=== PATIENT | female | born 1945 | race Caucasian/White ===

== ENCOUNTER → 2019-05-03 | Outpatient (CLI) | payer OTHER ==
[~2019-05-03] VITALS: Ht 167.6 cm; Wt 56.7 kg
[~2019-05-03] MED LIST: ASA81BEC PO; L-LYSINE500 M1 PO; MULTIVITAMINS PO; PROBIOTIC1 EAC7 PO; PROZAC20 MG PO; SIMVASTATIN40 MG PO; SYNTHROID100 MC1 PO; WELLBUTRIN XL300 MG PO
--- NOTE | 2019-05-04 10:34 | P ---
[facility] [address] [place] [address] PROCEDURE REPORT Name: MORALES LR Room #: REG [facility]#: [id number] Admission: 05/03/19 Attend Phys: Greg Suh MD Discharge: Date of : 47 Report #: [id number] THIS REPORT FOR: //name// CC: Maria Suh DATE OF SERVICE: 05/03/2019 BRIEF HISTORY: The patient is a 74-year-old woman who has a history of multiple colon adenomas. Also, family history of colon cancer in her brother when he was in his early 50s. PREOPERATIVE DIAGNOSES: High risk screening colonoscopy due to personal history of colon polyps, family history of colon cancer. POSTOPERATIVE DIAGNOSES: 1. Multiple colon polyps. 2. Large rectal polyp. 3. Diffusely dilated colon consistent with chronic constipation. MEDICATIONS: Deep sedation with propofol per Anesthesia. SPECIMENS: 1. Diminutive polyp at 50 cm. 2. Diminutive polyp hepatic flexure. 3. Diminutive polyp, cecum x 2. 4. Polyps mid ascending colon x 2. 5. Polyps proximal ascending colon x 2. 6. Distal transverse colon polyp. 7. Large rectal polyp. ESTIMATED BLOOD LOSS: 5 mL. PROCEDURE: Colonoscopy to cecum and terminal ileum with snare polypectomy, biopsy, injection of saline and Trinh ink. FINDINGS: Prior to propofol sedation, procedure of colonoscopy discussed with the patient as well as potential risks and its complications. She indicates she understands and desires to proceed. DESCRIPTION OF PROCEDURE: With the patient in left lateral decubitus position, digital examination was completed, which revealed no abnormalities. Subsequently, the Olympus video colonoscope was introduced in the rectum, advanced under direct vision to the cecum. This was done with minimal difficulty. The cecum was identified by the ileocecal valve and the appendiceal [facility] [address] [place] [address] PROCEDURE REPORT Name: ELIECERMORALES HADDAD Room #: REG [facility]#: [id number] Admission: 05/03/19 Attend Phys: Greg Suh MD Discharge: Date of : 47 Report #: [id number] orifice. I was able to visualize the distal segment of the terminal ileum, which was inspected and noted to be unremarkable. At that point, the scope was slowly withdrawn and careful circumferential views were obtained including retroflexion of the ascending colon. Upon slow withdrawal of the scope, the prep was generally good, although there were a couple areas with some residual vessel material. As we withdrew the scope, 2 diminutive polyps were seen in the cecum and removed with the biopsy forceps. The scope was further withdrawn and then we initially saw 2 polyps in the mid ascending colon. One was a flat polyp draped over the edge of fold. It was covered with mucus. It was 10-12 mm in greatest dimension, removed with multiple passes of cold polypectomy snare and biopsy forceps. The second polyp was a diminutive polyp in the same area and was removed with biopsy forceps. The larger polyp had the appearance of a serrated adenoma. We then found 2 polyps just proximal to that area. Both had an adenomatous appearance. They were in the range of about 4-6 mm and removed with cold polypectomy snare. Scope was further withdrawn and a diminutive polyp was seen and removed with biopsy forceps from the distal transverse colon. The scope was further drawn and no additional abnormalities were noted until 50 cm was reached in the descending colon, and a diminutive polyp was seen and removed with biopsy forceps. Scope was withdrawn in the rectum and no abnormalities were seen. However, upon retroflexion, in the distal rectum was a flat carpet-like polyp with some raised areas. It was about 2 x 2 cm. No other lesions were seen. This polyp was then elevated with saline and we used a 13 mm snare and removed multiple fragments of the polyp. However, there were sessile areas that still remained. We then switched to a 10 mm snare, which was stiffer and we were able to engage flat and resect much better and we continued to resect in fragments. Once we resected all the polyps that we could engage in the snare, couple of fragments were removed with cold biopsy forceps. We then used argon plasma coagulation and treated the entire edge of the polypectomy site as well as questionable areas of residual polyp in the base of the polypectomy site. There was good hemostasis. It was felt that all visible areas of the polyp were either removed or treated with argon plasma coagulation. We then used a needle and injected Trinh ink in place tattoo on each side of the polypectomy site. No additional lesions were seen. Scope was withdrawn. The patient tolerated the procedure well. CONDITION OF THE PATIENT UPON DISCHARGE: Following procedure, the patient drowsy, aroused, conversant and will be discharged home when fully ambulatory. INSTRUCTIONS TO THE PATIENT AND FAMILY AT THE TIME OF DISCHARGE: The patient with multiple polyps as noted above. Given the fact that we had 10 polyps removed today and she has had multiple polyps in the past, we will have her return in 2 years for high risk screening colonoscopy. Ideally, I would like to have her return in 6 months for flexible sigmoidoscopy to inspect the [address] [address] PROCEDURE REPORT Name: MORALES LR Room #: [facility]#: [id number] Admission: 05/03/19 Attend Phys: Greg Suh MD Discharge: Date of : 47 Report #: [id number] polypectomy site. We will discuss further with the patient. In addition, we will obtain old chart and review a lifetime polyp count. <ELECTRONICALLY SIGNED> By: Greg Suh MD 05/04/19 1034 [id number] Greg Suh MD /nt
--- NOTE | 2019-05-07 12:06 | PATH ---
[facility] [place] [address] PATHOLOGY RPT PROCEDURE Name: MORALES LR Room #: REG [facility].#: [id number] Admission: 05/03/19 Date of : 47 Discharge: Report #: [id number] Path Case #: [id number] [facility] Accession Number: [id number] . 01 Material submitted: . PART A: colon - POLYP AT 50CM PART B: hepatic flexure - POLYP AT HEPATIC FLEXURE PART C: cecum - POLYP AT CECUM X2 PART D: colon - POLYP AT MID-ASCENDING COLON X2. Modifiers: mid, ascending PART E: colon - POLYP AT PROXIMAL ASCENDING COLON X2. Modifiers: proximal, ascending PART F: colon - POLYP AT DISTAL TRANSVERSE COLON. Modifiers: distal, transverse PART G: rectum - POLYP AT RECTUM . 01 Clinical history: . Pre-OP DX: Hx of polyps, family HX colon cancer Post-OP DX: Colon polyps . 02 Diagnosis: A. Polyp at 50 cm, endoscopic biopsy: - Tubular adenoma. - Negative for high-grade dysplasia. . B. Polyp at hepatic flexure, endoscopic biopsy: - Tubular adenoma. - Negative for high-grade dysplasia. . C. Polyp x2, at cecum, endoscopic biopsy: - Tubular adenoma. - Negative for high-grade dysplasia. . D. Polyp x2, at mid ascending colon, endoscopic biopsy: - One fragment showing tubular adenoma without high-grade dysplasia. - Multiple fragments showing hyperplastic polyp without dysplasia. . E. Polyp x2, at proximal ascending colon, endoscopic biopsy: - Tubular adenoma identified in multiple fragments. - Negative for high-grade dysplasia. . F. Polyp, at transverse colon, endoscopic biopsy: - Tubular adenoma. - Negative for high-grade dysplasia. . G. Polyp, at rectom, endoscopic biopsy: - Multiple fragments consistent with a tubulovillous adenoma. - Negative for high-grade dysplasia. (IUV:mariama; 05/04/2019) [facility] [address] [place] [address] PATHOLOGY RPT PROCEDURE Name: MORALES LR [id number] Admission: 05/03/19 Date of : 47 Discharge: Report #: [id number] Path Case #: [id number] . . . . . . . . . . . . . . . S 05/04/2019 1459 Local . 02 Electronically signed: . Daxa Osorio MD, Pathologist NPI- [id number] . 01 Gross description: . A. Received in formalin labeled "Morales Lr, polyp at 50 cm," is a single segment of beckford soft tissue measuring 0.4 cm in maximum dimension. The specimen is entirely submitted in cassette A1. . B. Received in formalin labeled "Daniel Lra, polyp at hepatic flexure," are 2 segments of beckford soft tissue measuring 0.7 x 0.2 x 0.2 cm in aggregate dimensions and ranging from 0.3 to 0.4 cm in maximum dimension. The specimen is submitted entirely in cassette B1. . C. Received in formalin labeled "Morales Lr, polyp at cecum x2," are multiple segments of beckford soft tissue measuring 0.4 x 0.2 x 0.1 cm in aggregate dimensions. The specimen is filtered and entirely submitted in cassette C1. . D. Received in formalin labeled "Morales Lr, polyp at mid ascending colon," and additionally labeled on the requisition as "x2," are multiple segments of beckford soft tissue measuring 1.8 x 0.6 x 0.2 cm in aggregate dimensions. The specimen is filtered and entirely submitted in cassette D1. . E. Received in formalin labeled " Daniel Lra, polyp at proximal ascending colon," and additionally labeled on the requisition as "x2," are 4 segments of beckford soft tissue measuring 1.5 x 1.3 x 0.3 cm in aggregate dimensions and ranging from 0.3 to 0.9 cm in maximum dimension. The specimen is submitted entirely in cassette E1. [address] [address] PATHOLOGY RPT PROCEDURE Name: MORALES LR Room #: REG [facility] Froy#: [id number] Admission: 05/03/19 Date of : 47 Discharge: Report #: [id number] Path Case #: [id number] . F. Received in formalin labeled "Morales Lr, polyp at distal transverse colon," is a single segment of beckford soft tissue measuring 0.3 cm in maximum dimension. The specimen is entirely submitted in cassette F1. . G. Received in formalin labeled "LyndsayabenDaniela, polyp at rectum," are multiple segments of beckford soft tissue admixed with vegetative material measuring 2.5 x 1.3 x 0.4 cm in aggregate dimensions. The specimen is filtered and entirely submitted in cassette G1-G3. (TSD; 05/03/2019) TOB/TOB 05/03/2019 2300 Local . 02 Pathologist provided ICD-10: D12.6, D12.3, D12.0, D12.2, D12.8 . 02 CPT . 525291, 624742, 445912, 268591, 308064, 365583, 779404 Specimen Comment: A courtesy copy of this report has been sent to Specimen Comment: [phone], . Specimen Comment: Report sent to / DR PETTY Performed at: [address] [facility] [address], [place], [place] [id number] MD Dedrick Cadena MD Phone: [phone] Performed at: [address] [facility] [address] [id number] MD Daxa Osorio MD Phone: [phone]
== END | disposition home or self-care (01) ==
LOC: GI 07:42
DX: Z12.11 Encounter for screening for malignant neoplasm of colon (principal); Z86.010 Personal history of colon polyps; Z80.0 Family history of malignant neoplasm of digestive organs; K59.39 Other megacolon; D12.5 Benign neoplasm of sigmoid colon; D12.3 Benign neoplasm of transverse colon; D12.0 Benign neoplasm of cecum; D12.2 Benign neoplasm of ascending colon; D12.8 Benign neoplasm of rectum; E78.5 Hyperlipidemia, unspecified; E03.9 Hypothyroidism, unspecified; F32.9 Major depressive disorder, single episode, unspecified; M19.90 Unspecified osteoarthritis, unspecified site; Z98.890 Other specified postprocedural states; Z79.899 Other long term (current) drug therapy; Z88.2 Allergy status to sulfonamides; Z85.828 Personal history of other malignant neoplasm of skin; Z88.8 Allergy status to other drugs, medicaments and biological substances; Z79.82 Long term (current) use of aspirin
CPT/HCPCS: 62110; 62900